=== PATIENT | male | born 1950 | race Caucasian/White ===

== ENCOUNTER 2020-11-16 22:49 | Emergency (ER) | payer MEDICARE, MEDICAID ==
[~2020-11-16] VITALS: Ht 172.7 cm; Wt 115.7 kg
[2020-11-16 23:10] VITALS: BP 180/70
--- NOTE | 2020-11-16 23:12 | NUR ---
ED Nurse Note: Patient walked into ER c/o non stop nosebleed since 3pm today. Per patient he was discharged from [facility] at 1230 today Patientstated, that he picked his nose and started bleeding nonstop, patient reports take plavix and aspirin. Patient's BP 180/70, 90% O2 sat on RA.
--- NOTE | 2020-11-16 23:18 | NUR ---
ED Nurse Note: Dr. Dougherty at bed side, placed rapid rhino, patient tolerated procedure well.
--- NOTE | 2020-11-16 23:25 | NUR ---
ED Nurse Note: Recieved pt awake, verbal and A&Ox4 . rapid rhino still and it stoped the bleed. pt vitals are stable. We will keep monitoring the pt.
--- NOTE | 2020-11-16 23:29 | Emergency Room Report ---
History of Present Illness General Chief Complaint: Nosebleed Source: Patient Present Illness HPI 70-year-old [place]an-speaking male with a history of COPD and oxygen dependent. Also history of high blood pressure and CAD. He presents with chief complaint of nosebleed. He said his nose was dry from the oxygen so he picked at it and it was bleeding. Is been bleeding since afternoon. Denies passing clots. He said he felt short of breath because of the bleeding. Denies any fever chills but denies any nausea vomiting. Covid testing the other day was negative. No exertional component. Nothing made it better. Nothing made it worse. 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/20 COVID-19 Screening: Negative COVID-19 COVID-19 Testing Source: [facility] Patient History Past Medical History: see triage record, old chart reviewed, HTN, COPD Past Surgical History: other Pertinent Family History: none Social History: Denies: smoking Immunizations: other Reviewed Nursing Documentation: PMH: Agreed; PSxH: Agreed Nursing Documentation-PMH Past Medical History: No History, Except For Hx Hypertension: Yes 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 Review of Systems Eye: Denies: eye pain, blurred vision ENT: Denies: ear pain, nose congestion, throat swelling Respiratory: Denies: cough, shortness of breath Cardiovascular: Denies: chest pain, palpitations Gastrointestinal: Denies: abdominal pain, diarrhea, nausea, vomiting Musculoskeletal: Denies: back pain, joint pain Skin: Denies: rash Neurological: Denies: headache, numbness Endocrine: Denies: increased thirst, increased urine Hematologic/Lymphatic: Denies: easy bruising All Other Systems: negative except mentioned in HPI Physical Exam Vital Signs Date Time Temp Pulse Resp B/P (MAP) Pulse Ox O2 Delivery O2 Flow Rate FiO2 11/16/20 23:00 96.6 100 15 180/70 (106) 89 Room Air Vitals with high blood pressure. Pulse ox is hypoxic. On his baseline oxygen 2 L, is 94%. Sp02 EP Interpretation: reviewed, abnormal General Appearance: well appearing, no apparent distress, alert Head: normocephalic, atraumatic Eyes: bilateral eye PERRL, bilateral eye EOMI ENT: hearing grossly normal, normal pharynx, other - Left nares: Large clots. Oozing blood. Neck: full range of motion, supple, no meningismus Respiratory: chest non-tender, lungs clear, normal breath sounds Cardiovascular #1: regular rate, rhythm, no murmur Gastrointestinal: normal bowel sounds, non tender, no mass, no organomegaly, no bruit, non-distended Musculoskeletal: back normal, normal range of motion, gait/station normal Psychiatric: mood/affect normal Procedures Additional Procedure Procedure Narrative Procedure: Epistaxis control Indication: Epistaxis Description: I placed a 7.5 cm Rhino Rocket into the left nares. It was inflated. Bleeding is controlled. There was slight oozing but no severe bleeding. Patient tolerated procedure without any problem. Medical Decision Making Diagnostic Impression: Primary Impression: Epistaxis ER Course This patient presents with anterior epistaxis of the left nose. No evidence of posterior bleeding. Probably worsened by his oxygen use and anticoagulation. Will discharge home. Last Vital Signs Date Time Temp Pulse Resp B/P (MAP) Pulse Ox O2 Delivery O2 Flow Rate FiO2 11/16/20 23:10 96.6 100 15 180/70 89 Room Air Status: improved Disposition: HOME, SELF-CARE Condition: Stable Referrals: [facility]KR[facility]ST[facility] (PCP) Patient Instructions: Nosebleed, [id number] Additional Instructions: Follow-up with your doctor in 2 to 3 days for removal of Rhino Rocket. Return if symptoms worsen. Chad Dougherty MD Nov 16, 2020 23:28
[2020-11-16 23:58] VITALS: BP 159/59
--- NOTE | 2020-11-16 23:58 | NUR ---
ER DISCHARGE NOTE: Patient is cleared to be discharged per ERMD, pt is aox4, on room air, with stable vital signs. pt was given dc. pt was able to verbalize understanding, pt id band removed without complications. pt is able to ambulate with steady gait. pt took all belongings. pt went home with rapid rhino on.
== END 2020-11-16 23:58 | disposition home or self-care (01) ==
LOC: EMR 23:02
DX: R04.0 Epistaxis (principal); I10 Essential (primary) hypertension; J44.9 Chronic obstructive pulmonary disease, unspecified; Z99.81 Dependence on supplemental oxygen; Z88.8 Allergy status to other drugs, medicaments and biological substances; Z86.73 Personal history of transient ischemic attack (TIA), and cerebral infarction without residual deficits
CPT/HCPCS: 99282

== ENCOUNTER 2020-12-09 10:05 | Outpatient (RCR) | payer MEDICARE, MEDICAID ==
[~2020-12-09] VITALS: Ht 172.7 cm; Wt 116.6 kg
== END 2020-12-27 | disposition home or self-care (01) ==
LOC: WCC 10:05
DX: L97.513 Non-pressure chronic ulcer of other part of right foot with necrosis of muscle (principal); E08.40 Diabetes mellitus due to underlying condition with diabetic neuropathy, unspecified; R60.0 Localized edema; I11.9 Hypertensive heart disease without heart failure; I25.10 Atherosclerotic heart disease of native coronary artery without angina pectoris; Z86.73 Personal history of transient ischemic attack (TIA), and cerebral infarction without residual deficits; Z88.8 Allergy status to other drugs, medicaments and biological substances
CPT/HCPCS: 11043

== ENCOUNTER → 2020-12-11 | Outpatient (CLI) | payer MEDICARE, MEDICAID ==
--- NOTE | 2020-12-11 14:10 | Diagnostic Imaging Report ---
Indication: Right leg ulcers and pain Technique: Grayscale and duplex images of the right lower extremity arteries Comparison: none Findings: There is some flow velocity elevation within the right anterior tibial artery, peak systolic velocity 335 cm/s, with dampening of the waveforms distally. At all other levels, normal biphasic waveforms with sharp systolic peaks are demonstrated, including in the distal posterior tibial artery. Impression: Right anterior tibial artery stenosis. Otherwise unremarkable exam, with. In-line flow to the ankle the posterior tibial artery.
== END | disposition home or self-care (01) ==
LOC: VAS 15:35
DX: L97.919 Non-pressure chronic ulcer of unspecified part of right lower leg with unspecified severity (principal); I70.201 Unspecified atherosclerosis of native arteries of extremities, right leg
CPT/HCPCS: 93926